=== PATIENT | female | born 1955 | race Caucasian/White ===

== ENCOUNTER 2021-01-06 15:30 | Outpatient (RCR) | payer MEDICARE, SELFPAY ==
--- NOTE | 2021-01-02 14:28 | PTOPEVAL ---
INITIAL PHYSICAL THERAPY EVALUATION and PLAN OF CARE Thank you for referring Jayson Knox to [facility].? Jayson is scheduled to be seen for physical therapy? 2x/week for 6 weeks. Please review, sign, date and return this plan of care MIRIAN. I agree with and certify that the following plan of care is medically necessary. Referring Physician Date Admitting Provider: Attending Provider: Dennys Cruz MD Referring Provider: *PT Outpatient Evaluation Start: 01/02/21 13:12 Freq: Status: Active Protocol: Document 01/02/21 13:12 LIZANDRO (Rec: 01/02/21 14:27 LIZANDRO [id number]) Therapy Assessment Status Assessment Status Assessment Status Evaluation Outpatient Past Medical History Past Medical History Source of Past Medical History Patient Neurological History Hx Neurological Disorders No Significant History Cardiovascular History Hx Hypercholesterolemia Yes Respiratory History Hx Respiratory Disorders No Significant History Gastrointestinal History Hx Gastroesophageal Reflux Disease Yes Hx Other Gastrointestinal Disorders Yes: polyp removed from colon Genitourinary History Hx Other Genitourinary Disorders Yes: urinary incontinence Musculoskeletal History Hx Arthritis Yes: bilat knee Hx Crutches or Walker Use Yes Query Text:If Yes, Enter Crutches, Walker, or Both in the Comment Hx Spinal Surgery Yes: T11,T12 fx - laura rods in back Endocrine History Hx Diabetes Yes: type 2 Psychosocial History Hx Bipolar Disorder Yes Evaluation Information Problem Diagnosis Advanced OA L knee and R knee Onset last 10 years, worsened last year Subjective Information Needs to use wheeled walker Query Text:As Reported By Patient/ due to leg weakness and knee Family pain. Will fall on occasions - needs to call ambulance to get her up. Waiting on knee surgery - needs to lose 15# and get stronger. Sleep will be disturbed due to knee pain. 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
--- NOTE | 2021-01-13 15:53 | PCPTNOTE ---
Pt called and canceled due to inclement weather. Will continue per POC.
--- NOTE | 2021-01-18 15:08 | PCPTNOTE ---
DISCHARGE SUMMARY PHYSICAL THERAPY Admitting Provider: Attending Provider: Dennys Cruz MD Patient:Jayson Knox Date of :1955 Jayson has cancelled her last 3 appointments - some due to weather but today she cancelled the rest of the appointments due to the colder weather causing her more discomfort. She said that she would see how she feels when the weather warms up and if feeling better would seek new PT referral. She will be discharged at this time. Jayson?s initial visit was on 01/02/2021 13:00 and she had a total of 2 visits. The goals have not been met. Thank you for referring Jayson to [facility]. Please review, sign, date and return this discharge summary MIRIAN. I have been updated about Jayson's current status and I agree with discharge from the above service at this time. Referring Physician Date
== END 2021-01-26 08:43 | disposition home or self-care (01) ==
LOC: ANHHIPT 15:30
PROVIDERS: Family Provider Internal Medicine; PCP Family Medicine; Visit Provider Orthopaedic Surgery
DX: M17.0 Bilateral primary osteoarthritis of knee (principal)
CPT/HCPCS: 97110; 97162

== ENCOUNTER 2021-03-15 15:05 | Outpatient (CLI) | payer MEDICARE, SELFPAY ==
--- NOTE | ~2021-03-15 | XR_ITS ---
XR chest 2V DATE: 03/15/2021 15:24 INDICATION: Shortness of breath for 2 weeks. History of hypertension and diabetes. TECHNIQUE: PA and lateral views COMPARISON: 05/20/2013 AP and lateral chest FINDINGS: Heart size is within normal limits. Is aortic unfolding. No hilar or mediastinal enlargemen t. No pulmonary infiltrate or consolidation, pleural effusion or pulmonary vascular congestion or pneumo thorax. Bilateral spinal rods are again noted in the thoracolumbar area with evidence of a very prominent ant erior wedge fracture deformity of a thoracolumbar vertebra and associated gibbus deformity. There is prominent degenerative spurring of the thoracic spine. There is diffuse osteopenia. Osteoarthritic changes are noted at the glenohumeral joints. IMPRESSION: No active cardiopulmonary disease Reviewed, dictated and finalized at location A.
== END 2021-03-15 15:06 | disposition home or self-care (01) ==
PROVIDERS: PCP Family Medicine; Visit Provider Physician Assistant
DX: R06.02 Shortness of breath (principal); M85.88 Other specified disorders of bone density and structure, other site
CPT/HCPCS: 71046

== ENCOUNTER 2021-05-05 10:00 | Outpatient (RCR) | payer MEDICARE, SELFPAY ==
--- NOTE | 2021-04-03 11:38 | PTOPEVAL ---
INITIAL PHYSICAL THERAPY EVALUATION and PLAN OF CARE Thank you for referring Jayson Knox to [facility].? Jayson is scheduled to be seen for physical therapy? 2x/week for 6 weeks. Please review, sign, date and return this plan of care MIRIAN. I agree with and certify that the following plan of care is medically necessary. Referring Physician Date Admitting Provider: Attending Provider: Dennys Cruz MD Referring Provider: *PT Outpatient Evaluation Start: 04/03/21 10:20 Freq: Status: Active Protocol: Document 04/03/21 10:20 LIZANDRO (Rec: 04/03/21 11:35 LIZANDRO [id number]) Therapy Assessment Status Assessment Status Assessment Status Evaluation Outpatient Past Medical History Past Medical History Source of Past Medical History Recalled from Previous Visit, Confirmed with Patient/Family Neurological History Hx Neurological Disorders No Significant History Cardiovascular History Hx Hypercholesterolemia Yes Hx Hypertension Yes Respiratory History Hx Respiratory Disorders No Significant History Gastrointestinal History Hx Gastroesophageal Reflux Disease Yes Hx Other Gastrointestinal Disorders Yes: polyp removed from colon Genitourinary History Hx Other Genitourinary Disorders Yes: urinary incontinence Musculoskeletal History Hx Arthritis Yes: bilat knee Hx Crutches or Walker Use Yes Query Text:If Yes, Enter Crutches, Walker, or Both in the Comment Hx Osteoporosis Yes: ? - scheduled for bone density scan Hx Spinal Surgery Yes: T11,T12 fx - Diaz rods in back Endocrine History Hx Diabetes Yes: type 2 Psychosocial History Hx Bipolar Disorder Yes Evaluation Information Problem Diagnosis Bilateral osteoarthritis of knees Onset long time - worsening last few year Subjective Information Needs to lose weight before Query Text:As Reported By Patient/ total knee replacements can be Family done. Activity level - does clean apartment, sits - reads, watch TV Does have someone come in 1x/month for deep scrubbing. Shower hard to get to. Uses curbside [employer] for groceries. Does do some cooking - but also gets take out. Minimal walking - just in the house. 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
--- NOTE | 2021-04-19 08:52 | PCPTNOTE ---
Patient called and states she cannot make it in because she is not feeling well.
--- NOTE | 2021-04-28 10:34 | PCPTNOTE ---
Patient did not show up for scheduled appointment this date. Phone call made, message left - information given for next visit.
--- NOTE | 2021-05-05 13:00 | PTOPEVAL ---
PHYSICAL THERAPY DISCHARGE NOTE Thank you for referring Jayson Knox to [facility][Note 3].? Jayson has been seen x 8 visits. She is more compliant with performing HEP sitting - thus upgraded of HEP was done and reviewed today with her. She is ready for d/c from PT to HEP at this time. Progress was made towards goals set. I agree with Jayson's discharge from PT. Referring Physician Date Admitting Provider: Attending Provider: Dennys Cruz MD Referring Provider: Therapy Assessment Status Assessment Status Assessment Status Discharge Evaluation Information Problem Diagnosis Bilateral osteoarthritis of knees Subjective Information Jayson reports when sitting - no Query Text:As Reported By Patient/ knee pain present. Feels most Family of her knee pain at night when trying to sleep. Limited with standing activities due to back pain. She states that she usually performs her HEP sitting - at times she will do them in the bed or standing. Pain Assessment Timing of Pain Assessment Timing of Pain Assessment Assessment Pain Scale Pain Scale Used Numeric (1 - 10) Self Report Pain Assessment Right Knee(s) Reported Pain Level 0 Lowest Pain Intensity 0 Greatest Pain Intensity 3 Left Knee(s) Reported Pain Level 0 Lowest Pain Intensity 0 Greatest Pain Intensity 4 Pain Score Pain Score 0,0: Self Report Interventions Used Interventions Used By Clinicians Exercise Lower Extremity Range of Motion Knee Range of Motion Right Knee Flexion Range of Motion - Active 80 Knee Extension Range of Motion - Active -10 Query Text: Knee Range of Motion Comments sitting knee flexion - 90 capsular and soft tissue restriction limiting motion Left Knee Flexion Range of Motion - Active 80 Knee Extension Range of Motion - Active -13 Query Text: Knee Range of Motion Comments sitting knee flexion - 93 capsular and soft tissue restriction limiting motion Lower Extremity Muscle Strength Testing Hip Strength Right Hip Flexion Strength 4 Good Hip Extension Strength 3+ Fair + Hip Abduction Strength 3 Fair Hip Medial Rotation Strength 4 Good Hip Lateral Rotation Strength 4+ Good + Left Hip Flexion Strength 4+ Good + Hip Extension Strength 3+ Fair + Hip Abduction Strength 3 Fair Hip Medial Rotation Strength 4+ Good + Hip Lateral Rotation Strength 4 Good Knee Strength Right Knee Flexion Strength
== END 2021-05-16 13:39 | disposition home or self-care (01) ==
LOC: ANHHIPT 10:00
PROVIDERS: PCP Family Medicine; Visit Provider Orthopaedic Surgery
DX: M17.0 Bilateral primary osteoarthritis of knee (principal)
CPT/HCPCS: 97110; 97140; 97162

== ENCOUNTER 2022-03-12 15:20 | Outpatient (CLI) | payer MEDICARE, SELFPAY ==
--- NOTE | ~2022-03-12 | MM_ITS ---
EXAMINATION: MM screening luis BI w hien HISTORY: Screening mammogram TECHNIQUE: Craniocaudal and mediolateral oblique 3-D tomosynthesis images were obtained and synthetic 2-D images were generated. CAD analysis was submitted and interpreted. COMPARISON: 12/14/2019 and 05/28/2019 diagnostic left mammogram and limited left breast ultrasound exam inations 05/15/2019 bilateral screening mammogram BREAST PARENCHYMAL COMPOSITION: There are scattered areas of fibroglandular density. FINDINGS: There is no evidence of suspicious mass, calcification, or architectural distortion to sugg est malignancy in either breast. There has been no suspicious interval change. IMPRESSION: 1. No mammographic evidence of malignancy. 2. Recommend routine screening mammography in one year. BI-RADS Category 1: Negative Reviewed, dictated and finalized at location A.
== END 2022-03-12 15:21 | disposition home or self-care (01) ==
LOC: ANHIMG 15:21
PROVIDERS: PCP Family Medicine; Visit Provider Family Medicine
DX: Z12.31 Encounter for screening mammogram for malignant neoplasm of breast (principal)
CPT/HCPCS: 77063; 77067

== ENCOUNTER → 2022-04-06 02:10 | Outpatient (CLI) | payer MEDICARE, SELFPAY ==
[2022-04-06 15:55] LABS: SARS-CoV-2 RNA PCR Negative
== END ==
PROVIDERS: PCP Family Medicine; Visit Provider Nurse Practitioner Gerontology
DX: R68.89 Other general symptoms and signs (principal); Z20.822 Contact with and (suspected) exposure to COVID-19
CPT/HCPCS: C9803; U0003; U0005

== ENCOUNTER 2022-05-08 11:36 | Outpatient (CLI) | payer MEDICARE, SELFPAY ==
[2022-05-08 13:14] LABS: Free T4 Free Thyroxine 1.44 ng/mL (0.78-2.19); Vitamin D 25 Hydroxy 64.5 ng/mL
== END 2022-05-08 11:37 | disposition home or self-care (01) ==
LOC: ANHWCLAB 11:38
PROVIDERS: PCP Family Medicine; Visit Provider Internal Medicine Endocrinology, Diabetes & Metabolism
DX: E03.9 Hypothyroidism, unspecified (principal); R79.89 Other specified abnormal findings of blood chemistry; E55.9 Vitamin D deficiency, unspecified
CPT/HCPCS: 36415; 82306; 84439; 84443

== ENCOUNTER 2022-05-16 14:31 | Outpatient (CLI) | payer MEDICARE, SELFPAY ==
--- NOTE | ~2022-05-16 | XR_ITS ---
EXAM: XR hip BI 2V w AP pelvis DATE: 05/16/2022 15:05 HISTORY: S22.080A - Wedge compression fracture of T11-T12 vertebra... . COMPARISON: 06/03/2009. FINDINGS: Decreased mineralization. No fracture or dislocation. No lytic or blastic lesion. Lower miguel mbar degenerative change. Mild degenerative changes in the SI joints and pubic symphysis. Moderate le ft and mild right axial hip joint space narrowing. Moderate osteophytosis around the left femoral hea d with erosion/subchondral cysts. No erosion or periosteal change. Soft tissues within normal limits. IMPRESSION: Moderate left and mild right hip arthritis. Inflammatory arthritis should be considered i n the differential. Reviewed, dictated and finalized at location K. IMPRESSION: Moderate left and mild right hip arthritis. Inflammatory arthritis should be considered in the differential.
--- NOTE | ~2022-05-16 | XR_ITS ---
EXAM: XR thoracic spine 2V DATE: 05/16/2022 15:05 HISTORY: PAIN . COMPARISON: None available. FINDINGS: Posterior fusion rods and pedicle hooks span T11-12. 4mm anterolisthesis of T3 on T4, othe rwise the vertebral body alignment is intact. Moderate-severe anterior wedge deformity of T12, unchan ged, otherwise the body heights are preserved. Multilevel moderate disc space narrowing and prominent marginal osteophytosis including bridging osteophytes at multiple levels. No traumatic malalignment or fracture. Visualized lung parenchyma is clear. IMPRESSION: Stable T12 wedge compression fracture and posterior fusion hardware. Grade 1 anterolisthe sis of T3 on T4, presumably on a degenerative basis. Multilevel severe degenerative disc disease in t he thoracic spine. Reviewed, dictated and finalized at location K. IMPRESSION: Stable T12 wedge compression fracture and posterior fusion hardware . Grade 1 anterolisthesis of T3 on T4, presumably on a degenerative basis. Mult ilevel severe degenerative disc disease in the thoracic spine.
--- NOTE | ~2022-05-16 | XR_ITS ---
EXAM: XR lumbar spine 2-3V DATE: 05/16/2022 15:05 HISTORY: S22.080A - Wedge compression fracture of T11-T12 vertebra... . COMPARISON: None available. FINDINGS: Cholelithiasis. Pelvic phleboliths. Axial left hip joint space narrowing as can be seen wi th inflammatory arthritis. Pedicle hooks and fusion rods spanning T11-12. 5 nonrib-bearing lumbar-typ e vertebral bodies. Pedicles intact. Exaggerated lumbar lordosis. Old moderate anterior wedge deformi ty of T12, remaining vertebral body heights maintained. 3 mm retrolisthesis of L1 on L2. 2 mm anterol istheses of L4 on L5 and L5 on S1. Multilevel degenerative disc narrowing and marginal osteophytosis, with vacuum phenomenon at L1-2 and L4-5. Multilevel facet hypertrophy and sclerosis. Interspinous na rrowing. IMPRESSION: Severe degenerative disc disease at L1-2 and L4-5. Multilevel grade 1 listhesis, presumab ly on a degenerative basis. Severe lumbar facet arthropathy. Reviewed, dictated and finalized at location K. IMPRESSION: Severe degenerative disc disease at L1-2 and L4-5. Multilevel grade 1 listhesis, presumably on a degenerative basis. Severe lumbar facet arthropat hy.
== END 2022-05-16 14:32 | disposition home or self-care (01) ==
PROVIDERS: PCP Family Medicine; Visit Provider Nurse Practitioner Gerontology
DX: M25.559 Pain in unspecified hip (principal); M54.50 Low back pain, unspecified; M54.6 Pain in thoracic spine; R53.1 Weakness; S22.080A Wedge compression fracture of T11-T12 vertebra, initial encounter for closed fracture; M16.0 Bilateral primary osteoarthritis of hip; M47.814 Spondylosis without myelopathy or radiculopathy, thoracic region; M51.34 Other intervertebral disc degeneration, thoracic region; M51.36 Other intervertebral disc degeneration, lumbar region
CPT/HCPCS: 72070; 72100; 73521

== ENCOUNTER 2022-06-21 13:01 | Outpatient (CLI) | payer MEDICARE, SELFPAY ==
--- NOTE | ~2022-06-21 | DEXA_ITS ---
Bone Density Report Name: VLAD WISEMAN Age: 66 Sex: Female Ethnicity: White Date of : 1955 Indication: postmenopausal; screening for osteoporosis; height loss; prior fracture; Referring Provider: SHERRY OBANDO Study: Bone densitometry was performed. Exam Date: June 21, 2022 Accession number: [id number] Bone Density: Region BMD T-score Z-score Classification AP Spine(L3, L4) 1.290 1.7 3.8 Normal Femoral Neck (Left) 0.724 -1.1 0.6 Osteopenia Total Hip (Left) 0.798 -1.2 0.3 Osteopenia Femoral Neck (Right) 0.622 -2.0 -0.3 Osteopenia Total Hip (Right) 0.695 -2.0 -0.6 Osteopenia Total Hip Mean 0.746 -1.6 -0.2 Osteopenia World Health Organization criteria for BMD impression classify patients as: Normal (T-score at or above -1.0), Osteopenia (T-score between -1.0 and -2.5), or Osteoporosis (T-score at or below -2.5). 10-year Fracture Risk: FRAX not reported because: Prior hip or vertebral fracture Treated for osteoporosis Clinical Information Provided by Patient: Have had a previous hip or vertebral fracture Has had a low trauma fracture Is being treated for osteoporosis Has used the following medications: Miacalcin (i.e. calcitonin), Vitamin D Patient maximum height was 65.5 Menopause Age: 48 No regular weight bearing exercise Does not regularly consume dairy products Drinks caffeinated beverages Onset of menses at age 8 Number of children 0 Impression: The patient has low bone mass, based on the Right Total Hip T-score. The patient has risk factors, including: previous fracture. Discussion: It is important to ask patients whether they are taking their medications and to encourage continued and appropriate compliance with their osteoporosis therapies to reduce fracture risk. It is also important to review their risk factors and encourage appropriate calcium and vitamin D intakes, exercise, fall prevention and other lifestyle measures. Follow-Up: Consider a repeat BMD and Vertebral Fracture Assessment (VFA) exam in 2 years or sooner if medically necessary, to reassess this patient's status. Reported by: RONI on 06/21/2022 1:26:00 PM. Reviewed, dictated and finalized at location James GUPTA
== END 2022-06-21 13:02 | disposition home or self-care (01) ==
PROVIDERS: PCP Family Medicine; Visit Provider Family Medicine
DX: Z78.0 Asymptomatic menopausal state (principal); M85.89 Other specified disorders of bone density and structure, multiple sites
CPT/HCPCS: 77080

== ENCOUNTER 2022-07-16 06:42 | Outpatient (RCR) | payer MEDICARE, SELFPAY | END 2022-10-14 23:59 | disposition home or self-care (01) | LOC: ANHHIPT 06:42 | PROVIDERS: PCP Family Medicine; Visit Provider Family Medicine | DX: S92.912D Unspecified fracture of left toe(s), subsequent encounter for fracture with routine healing (principal); S22.080D Wedge compression fracture of T11-T12 vertebra, subsequent encounter for fracture with routine healing; M25.559 Pain in unspecified hip; M54.50 Low back pain, unspecified; R26.89 Other abnormalities of gait and mobility | CPT/HCPCS: 99199 ==

== ENCOUNTER 2022-09-27 14:11 | Outpatient (RCR) | payer MEDICARE, SELFPAY | END 2022-09-27 17:44 | disposition home or self-care (01) | LOC: ANHDMC 14:11 | PROVIDERS: PCP Family Medicine; Visit Provider Internal Medicine Endocrinology, Diabetes & Metabolism | DX: E11.65 Type 2 diabetes mellitus with hyperglycemia (principal); Z71.89 Other specified counseling | CPT/HCPCS: G0108 ==

== ENCOUNTER 2023-05-10 12:30 | Outpatient (RCR) | payer MEDICARE, SELFPAY ==
--- NOTE | 2023-02-14 16:31 | PTOPEVAL1 ---
Assessment and note entered by Blessing Petty, PT Evaluation Information Assessment Status Evaluation Diagnosis Cervical spondylosis and radicular pain Onset a couple months Subjective Information Has had therapy previously for her legs. Still has her therapy exercises, but reports mainly sides of legs need to be built up. Neck is currently what is bothering her. Currently has a presciption for neck muscle spasms she says helps. Wonders if is irritated because of the heavy use on the walker Reports falls often which doesn't help. Had a fall a few days ago without injury Reported Pain Level Pain Score 2: Self Report Assessment PT Clinical Summary Pt presents with complaints of neck pain. Reports multiple issues including knee and hip pain, prior back surgery, and reports she has weak legs. Chart review reveals prior history of poor attendance in therapy, and non-compliance with diet. Pt was educated on increasing activity in small amounts and performed initial cervical ROM activities. Pending compliance, pt will benefit from physical therapy to address deficits in cervical ROM, pain, muscle tonicity, and posture. Plan of Care Interventions Electrical Stimulation,Hot Pack/Cold Pack,Manual Therapy,Neuro Re-education,Patient/Caregiver Educati,Therapeutic Activities,Therapeutic Exercise PT Services Indicated Yes Treatment Frequency and 1x weekly x 8 weeks due to transportation Duration These treatments will address the objective and functional deficits as defined above. The patient will be advanced safely and appropriately in order for the patient to progress towards his/her prior level of function. Additional exercises will be introduced and as well as a comprehensive home exercise program upon discharge, if needed, ?to ensure carryover of functional gains achieved in the clinic. This treatment plan has been reviewed and agreement upon by the patient.
--- NOTE | 2023-03-04 12:48 | PCPTNOTE ---
Patient called & cancelled scheduled appointment this date due to not feeling well. Was offered to reschedule which she declined at this time.
--- NOTE | 2023-03-18 16:59 | PTOPPROG ---
Assessment and note entered by Blessing Petty, PT Assessment Status Progress Report Diagnosis Cervical spondylosis and radicular pain Onset a couple months Subjective Information Pt reports has pain mostly at night. She only takes her pain medicaiton at this time. States she knows she needs to walk more. Thinks her overall weakness is causing her neck pain. Reports she is trying to be more conscious of her postures and is doing her exercises. Assessment PT Clinical Summary Pt has attended 5 sessions in 6 weeks due to transportation issues. Reports she is performing her home exercises as directed and trying to work on her postures. Reports she knows she needs to walk more also. Pt verbal reports of pain appear to show minimal progress and ROM testing shows minimal progress. However her ease of movement with testing is much improved compared to evaluation. Pt feels her time would be better spent working on her overall strength and mobility and feels this would benefit her neck more. Encouraged patient to discuss this with her medical doctor as well as therapist requesting shift of therapy plan to mobility, strength, and endurance based exercises. Next session is last session patient can attend until May. thus session will focus on home program and maintenance of progress with hopes of returning to therapy in May with a new prescription. Plan of Care Interventions Electrical Stimulation,Hot Pack/Cold Pack,Manual Therapy,Neuro Re-education,Patient/Caregiver Educati,Therapeutic Activities,Therapeutic Exercise PT Services Indicated Yes Treatment Frequency and 1x weekly x 1 visit for final visit to prepare for Duration discharge These treatments will address the objective and functional deficits as defined above. The patient will be advanced safely and appropriately in order for the patient to progress towards his/her prior level of function. Additional exercises will be introduced and as well as a comprehensive home exercise program upon discharge, if needed, ?to ensure carryover of functional gains achieved in the clinic. This treatment plan has been reviewed and agreement upon by the patient.
--- NOTE | 2023-05-03 17:29 | PTOPEVAL1 ---
Assessment and note entered by Blessing Petty, PT Evaluation Information Assessment Status Re-evaluation Diagnosis Cervical spondylosis and radicular pain Therapy Diagnosis bilat shoulder pain, abnormal posture, decreased mobility, gait abnormality Onset a couple months Subjective Information Pt reports neck is still bothersome. Reports she has been doing her exercises but her shoulders hurt more. Reports left shoulder is hurting her because she had to have EMS come out to help her up from the floor. Did not go to the hospital. Reports right shoulder is still weak and painful. States she also needs to work on her leg strength and walk more, is concerned about being able to get up and down and in and out of bed. Is getting a new mattress as well. Reported Pain Level Pain Score 0: Self Report Assessment PT Clinical Summary Pt had been attending therapy consistently 1x weekly for cervicalgia. She was unable to participate in therapy at a greater frequency due to hardship with leaving the home but opted for outpatient services versus home health. She also had a pause in therapy services due to lack of transportation and is now able to resume. She complains more of her shoulders and mobility issues today than her cervical issues and wishes to perform therapy for her shoulders at this time to improve her mobility. Pt has multiple areas of deficits and multiple complaints in addition to complex past medical history and co-morbidities. Also, therapy would focus on function and mobility versus being pain focused. She was educated today on addressing her therapy needs, focusing on certain aspects at a time versus trying to address too many issues at once in order to make appropriate progress. Thus pt would benefit from therapy to focus on improving shoulder mobility and strength, to improve overall function. Plan of Care Interventions Electrical Stimulation,Hot Pack/Cold Pack,Manual Therapy,Mechanical Traction,Neuro Re-education, Patient/Caregiver Educati,Therapeutic Activities, Therapeutic Exercise,Self-Care/Home Management, Ultrasound,Wheelchair Training PT Services Indicated Yes Treatment Frequency and 1-2x weekly x 8 weeks Duration These treatments will address the objective and functional deficits as defined above. The patient will be advanced safely and appropriately
--- NOTE | 2023-05-03 17:31 | OPREHPOC ---
Outpatient Therapy Plan of Care This is a Multidisciplinary Plan of Care that may contain components documented by all disciplines (PT, OT, and ST.) PT Problem 1 PT Problem #1 Knowledge Deficit PT Goal 1 Goal Pt will be independent in home exercise plan Target Visit 8 PT Goal 2 Goal Pt will demo appropriate sitting postures in the wheelchair she presents to therapy in Target Visit 16 PT Problem 2 PT Problem #2 Impaired Range of Motion PT Goal 1 Goal Pt will demo AROM bilat shoulder flexion of 0-140 Target Visit 16 PT Problem 3 PT Problem #3 Impaired Functional Mobil PT Goal 1 Goal Pt will demo ability to sit<>stand into LRAD independently Target Visit 16 PT Problem 4 PT Problem #4 Impaired Sensation PT Goal 1 Goal Will demo functional gait to amb 15 ft with LRAD for improved home mobility Target Visit 8 PT Goal 2 Goal Will demo functional gait to amb 30 ft with LRAD for improved home mobility
== END 2023-05-10 15:43 | disposition still patient (30) ==
LOC: ANHHIPT 12:30
PROVIDERS: PCP Family Medicine; Visit Provider Family Medicine
DX: M47.22 Other spondylosis with radiculopathy, cervical region (principal)
CPT/HCPCS: 97012; 97110; 97140; 97162; 97530

== ENCOUNTER 2023-05-24 12:30 | Outpatient (RCR) | payer MEDICARE, SELFPAY ==
--- NOTE | 2023-06-26 13:40 | PTOPDC ---
Assessment and note entered by Blessing Petty, PT Evaluation Information Assessment Status Discharge - Pt Not Present Diagnosis Cervical spondylosis and radicular pain Onset a couple months Assessment PT Clinical Summary Pt has had a change in status and has had to be hospitalized. Thus is being discharged from therapy plan of care. Will be happy to reinitiate therapy with updated prescription.
== END 2023-06-26 14:05 ==
LOC: ANHHIPT 12:30
PROVIDERS: PCP Family Medicine; Visit Provider Family Medicine
DX: M47.22 Other spondylosis with radiculopathy, cervical region (principal)
CPT/HCPCS: 97110; 97140

== ENCOUNTER 2023-06-26 14:12 | Outpatient (RCR) | payer MEDICARE, SELFPAY | END 2023-06-26 14:13 | disposition home or self-care (01) | LOC: ANHHIPT 14:12 | PROVIDERS: PCP Family Medicine; Visit Provider Family Medicine | DX: M47.22 Other spondylosis with radiculopathy, cervical region (principal) | CPT/HCPCS: 99199 ==

== ENCOUNTER 2023-09-19 14:38 | Outpatient (CLI) | payer MEDICARE, SELFPAY ==
[2023-09-19 17:33] LABS: Free T4 Free Thyroxine 1.43 ng/mL (0.78-2.19)
[2023-09-19 17:45] LABS: Anion Gap 4 mmol/L (8-16); Blood Urea Nitrogen 19 mg/dL (7-17); Calcium 10.9 mg/dL (8.4-10.2); Carbon Dioxide 32 mmol/L (22-30); Chloride 97 mmol/L (98-107); Estimated Glomerular Filt Rate > 60; Glucose 116 mg/dL (65-110); HDL Direct 40 mg/dL; Potassium 4.3 mmol/L (3.4-5.0); Sodium 133 mmol/L (137-145)
[2023-09-19 17:56] LABS: LDL Cholesterol Direct 97 mg/dL
[2023-09-19 18:07] LABS: Vitamin D 25 Hydroxy 72.4 ng/mL
[2023-09-20 07:10] LABS: Hemoglobin A1C 6.7 % (<5.7)
== END 2023-09-19 14:39 | disposition home or self-care (01) ==
LOC: ANHWCLAB 14:40
PROVIDERS: PCP Family Medicine; Visit Provider Internal Medicine Endocrinology, Diabetes & Metabolism
DX: E11.65 Type 2 diabetes mellitus with hyperglycemia (principal); E78.5 Hyperlipidemia, unspecified; R79.89 Other specified abnormal findings of blood chemistry; Z71.3 Dietary counseling and surveillance; E55.9 Vitamin D deficiency, unspecified
CPT/HCPCS: 36415; 80048; 82306; 82607; 83036; 83718; 83721; 84439; 84443

== ENCOUNTER 2023-10-01 14:01 | Outpatient (CLI) | payer MEDICARE, SELFPAY ==
[2023-10-01 17:01] LABS: Albumin Level 3.9 g/dL (3.5-5.1); Anion Gap 7 mmol/L (8-16); Blood Urea Nitrogen 22 mg/dL (7-17); Calcium 10.9 mg/dL (8.4-10.2); Carbon Dioxide 28 mmol/L (22-30); Chloride 101 mmol/L (98-107); Estimated Glomerular Filt Rate > 60; Glucose 83 mg/dL (65-110); Phosphorus 3.5 mg/dL (2.5-4.5); Potassium 4.2 mmol/L (3.4-5.0); Sodium 136 mmol/L (137-145)
[2023-10-01 17:09] LABS: Parathyroid Intact 49.1 pg/mL (7.5-53.5)
[2023-10-03 16:14] LABS: Ionized Calcium 5.7 mg/dL (4.7-5.5)
== END 2023-10-01 14:02 | disposition home or self-care (01) ==
LOC: ANHWCLAB 14:03
PROVIDERS: PCP Family Medicine; Visit Provider Internal Medicine Endocrinology, Diabetes & Metabolism
DX: E83.52 Hypercalcemia (principal)
CPT/HCPCS: 36415; 80069; 82330; 83970

== ENCOUNTER 2023-11-04 13:54 | Outpatient (CLI) | payer MEDICARE, SELFPAY ==
[2023-11-04 20:25] LABS: Albumin Level 3.8 g/dL (3.5-5.1); Anion Gap 8 mmol/L (8-16); Blood Urea Nitrogen 25 mg/dL (7-17); Calcium 10.1 mg/dL (8.4-10.2); Carbon Dioxide 28 mmol/L (22-30); Chloride 102 mmol/L (98-107); Estimated Glomerular Filt Rate > 60; Glucose 310 mg/dL (65-110); Potassium 4.3 mmol/L (3.4-5.0); Sodium 138 mmol/L (137-145)
[2023-11-04 20:35] LABS: Parathyroid Intact 65.7 pg/mL (7.5-53.5)
[2023-11-04 20:49] LABS: Vitamin D 25 Hydroxy 61.6 ng/mL
== END 2023-11-04 13:55 | disposition home or self-care (01) ==
LOC: ANHWCLAB 13:56
PROVIDERS: PCP Family Medicine; Visit Provider Internal Medicine Endocrinology, Diabetes & Metabolism
DX: E55.9 Vitamin D deficiency, unspecified (principal)
CPT/HCPCS: 36415; 80069; 82306; 83970

== ENCOUNTER 2023-11-14 08:54 | Emergency (ER) | payer OTHER, MEDICARE, SELFPAY ==
[2023-11-14 09:23] VITALS: BP 108/54; PULSE 106; RESP 18; TEMP 36.7; O2SAT 93
[2023-11-14 11:13] VITALS: BP 99/66; PULSE 108; RESP 16; O2SAT 96
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
== END 2023-11-14 12:22 | disposition home or self-care (01) ==
PROVIDERS: Emergency Provider Emergency Medicine; PCP Family Medicine
DX: M54.9 Dorsalgia, unspecified (principal); E11.42 Type 2 diabetes mellitus with diabetic polyneuropathy; E11.51 Type 2 diabetes mellitus with diabetic peripheral angiopathy without gangrene; E11.319 Type 2 diabetes mellitus with unspecified diabetic retinopathy without macular edema; E78.2 Mixed hyperlipidemia; E03.9 Hypothyroidism, unspecified; G47.33 Obstructive sleep apnea (adult) (pediatric); E55.9 Vitamin D deficiency, unspecified; M16.9 Osteoarthritis of hip, unspecified; M17.9 Osteoarthritis of knee, unspecified; M85.80 Other specified disorders of bone density and structure, unspecified site; F31.9 Bipolar disorder, unspecified; Z86.010 Personal history of colon polyps; Z79.84 Long term (current) use of oral hypoglycemic drugs; V47.5XXA Car driver injured in collision with fixed or stationary object in traffic accident, initial encounter
CPT/HCPCS: 99283